=== PATIENT | male | born 1990 | race Caucasian/White ===

== ENCOUNTER 2017-10-17 16:07 | Emergency (ER) | payer SELFPAY ==
[~2017-10-17] VITALS: Ht 167.6 cm; Wt 57.7 kg
[2017-10-17 16:36] VITALS: Ht 167.6 cm; Wt 57.7 kg
[2017-10-17] MEDS ORDERED: TYLENOL W/CODEI1 TAB PO (17:31)
[2017-10-17 17:38] VITALS: BP 122/068
== END 2017-10-17 17:40 | disposition home or self-care (01) ==
LOC: D.ER 16:07
DX: S02.5XXA Fracture of tooth (traumatic), initial encounter for closed fracture (principal); X58.XXXA Exposure to other specified factors, initial encounter; Y93.89 Activity, other specified; Y92.019 Unspecified place in single-family (private) house as the place of occurrence of the external cause